=== PATIENT | female | born 1985 | race Caucasian/White ===

== ENCOUNTER 2023-06-29 13:41 | Outpatient (CLI) | payer OTHER ==
--- NOTE | 2023-06-29 15:41 | Ultrasound Report ---
PROCEDURE: Pelvic w/Transvaginal INDICATIONS: HIST OF OVARIAN CYST TECHNIQUE: Real-time scanning was performed of the pelvic organs, with image documentation. Additional endovagi nal scanning was necessary due to incomplete visualization of the adnexal and endometrial structures by transabdominal scanning. COMPARISON: None. FINDINGS: Uterus: Uterus is anteverted and normal in size at 8.2 x 4.1 x 5.2 cm. The myometrium is homogeneou s. The endometrium measures 4 mm in combined thickness. No fibroids noted Ovaries: The right ovary is surgically absent. The left ovary measures 3.9 x 2.4 x 4.4 cm, with a c alculated ovarian volume of 21.1 cc. The ovaries have a normal sonographic appearance. Less than 12 follicles can be seen in each ovary. No adnexal masses are seen. No cystic lesions measuring greate r than 3 cm. There is a hemorrhagic left ovarian cyst measuring 2.2 x 1.9 x 2.0 cm. Other: No pathologic free abdominal or pelvic fluid. IMPRESSION: 1. Unremarkable uterus. 2. Surgical absence of the right ovary. 3. Incidental hemorrhagic left ovarian cyst measuring 2.2 cm. Reviewed by: Irvin Leija MD on 06/29/2023 3:40 PM PDT Approved by: Irvin Leija MD on 06/29/2023 3:40 PM PDT Station ID: [id number]
== END 2023-06-29 13:42 | disposition home or self-care (01) ==
LOC: DI 13:41
PROVIDERS: ATTEND Nurse Practitioner
DX: R14.0 Abdominal distension (gaseous) (principal); Z87.42 Personal history of other diseases of the female genital tract; Z90.721 Acquired absence of ovaries, unilateral; N83.202 Unspecified ovarian cyst, left side